=== PATIENT | male | born 1955 | race Caucasian/White ===

== ENCOUNTER 2018-01-10 12:36 | Emergency (ER) | payer OTHER ==
[2018-01-10] MEDS ORDERED: NA CHLORIDE 0.9% 500 ML ONE (13:38)
[2018-01-10] MEDS ORDERED: HYDRALAZINE HCL 20 MG/ML VIAL ONE (13:38)
[2018-01-10 13:47] LABS: Absolute Lymphocytes (CBC) 3.5 K/uL (0.7-4.9); Absolute Monocytes 0.7 K/uL (0.1-1.3); Absolute Neutrophil 5.4 K/uL (1.8-8.0); Basophils % 0.6 % (0-1.3); Eosinophils % 2.8 % (0-4.4); Hematocrit 45.1 % (39.6-49.0); Lymphocytes % 35.2 % (15.3-44.8); MPV 11.1 fL (7.6-11.3); Monocytes % 7.2 % (3.3-12.3)
[2018-01-10 13:55] LABS: Protime INR 0.93
[2018-01-10 13:59] LABS: ALT/SGPT 38 U/L (12-78); AST/SGOT 21 U/L (15-37); Albumin 3.7 g/dL (3.4-5.0); Alkaline Phosphatase 60 U/L (45-117); BUN Blood Urea Nitrogen 7 mg/dL (7-18); Bicarbonate 28 mmol/L (21-32); Bilirubin Direct 0.1 mg/dL (0-0.2); Bilirubin Total 0.4 mg/dL (0.2-1.0); Glucose Level 161 mg/dL (74-106); Magnesium 2.1 mg/dL (1.8-2.4); NT PRO-BNP 57 pg/mL (<125); Protein, Total 8.7 g/dL (6.4-8.2); Sodium Level 137 mmol/L (136-145); Troponin (Emerg Dept Use Only) < 0.02 ng/mL (0.0-0.045)
--- NOTE | 2018-01-10 14:16 | RAD REPORT ---
EXAM DESCRIPTION: RAD - Chest Single View - 01/10/2018 1:53 pm CLINICAL HISTORY: Hypertension, smoking history COMPARISON: None. TECHNIQUE: AP portable chest image was obtained 1342 hours . FINDINGS: No mass, consolidation or significant failure finding seen. Central vasculature and lung m arkings are mildly prominent with the baseline for the patient unknown. Trachea is in the midline. He art size is normal. No measurable pleural effusion and no pneumothorax. No acute bony abnormality see n. No acute aortic findings suspected. IMPRESSION: No peripheral mass or consolidation. Central vasculature and lung markings are mildly prominent. Heart size is normal. Minimal edema or volume overload pattern is possible. Infectious infiltrate is doubtful given the pro vided history.
--- NOTE | 2018-01-10 14:23 | ER ---
Nurse's Notes [facility] Name: Pierre Garcia Age: 62 yrs Sex: Male : 1955 Arrival Date: 01/10/2018 Time: 12:41 Bed 16 Private MD: Diagnosis: Essential (primary) hypertension;Patient's other noncompliance with medication regimen Presentation: 01/10 12:51 Presenting complaint: Patient states: "I've been having double vision for about 2 days aa5 now and they took my blood pressure at work and it was around 180/100". Pt denies any pain. Transition of care: patient was not received from another setting of care. Onset of symptoms was December 2017. Risk Assessment: Do you want to hurt yourself or someone else? Patient reports no desire to harm self or others. Initial Sepsis Screen: Does the patient meet any 2 criteria? No. Patient's initial sepsis screen is negative. Does the patient have a suspected source of infection? No. Patient's initial sepsis screen is negative. Care prior to arrival: None. 12:51 Method Of Arrival: Ambulatory aa5 12:51 Acuity: KAYLA 2 aa5 Triage Assessment: 12:55 General: Appears in no apparent distress. comfortable, Behavior is calm, cooperative, bp appropriate for age. Pain: Denies pain. Historical: - Allergies: 12:54 No Known Allergies; aa5 - Home Meds: 12:54 aspirin 81 mg Oral chew 1 tab once daily [Active]; multivitamin [Active]; aa5 - PMHx: 12:54 Borderline diabetes; aa5 - PSHx: 12:54 back surgery; aa5 - Immunization history:: Adult Immunizations unknown. - Social history:: Smoking status: Patient uses tobacco products, smokes one pack cigarettes per day. - Ebola Screening: : No symptoms or risks identified at this time. - Family history:: not pertinent. - Hospitalizations: : No recent hospitalization is reported. Screenin:57 Abuse screen: Denies threats or abuse. Denies injuries from another. Nutritional bp screening: No deficits noted. Tuberculosis screening: No symptoms or risk factors identified. Fall Risk None identified. Assessment: 12:56 General: Appears in no apparent distress. comfortable. Pain: Denies pain. Neuro: Level bp of Consciousness is awake, alert, obeys commands, Oriented to person, place, time, situation, Appropriate for age. Cardiovascular: No deficits noted. Respiratory: Airway is patent Respiratory effort is even, unlabored, Respiratory pattern is regular, symmetrical. GI: No signs and/or symptoms were reported involving the gastrointestinal system. : No signs and/or symptoms were reported regarding the genitourinary system. EENT: Reports blurred vision. Derm: No deficits noted. Musculoskeletal: Circulation, motion, and sensation intact. Range of motion: intact in all extremities. 15:01 Reassessment: PT D/C HOME AMBULATORY, S/S RELIEVED, DX WITH ESSENTIAL HTN. bp Vital Signs: 12:54 BP 204 / 106; Pulse 95; Resp 18 S; Temp 98.4(O); Pulse Ox 96% on R/A; Weight 92.99 kg aa5 (R); Height 5 ft. 10 in. (177.80 cm) (R); Pain 0/10; 14:00 BP 165 / 105; Pulse 89; Resp 21; Pulse Ox 97% ; bp 15:01 BP 169 / 96; Pulse 86; Resp 15; Pulse Ox 97% ; bp 12:54 Body Mass Index 29.41 (92.99 kg, 177.80 cm) aa5 ED Course: 12:41 Patient arrived in ED. mr 12:52 Triage completed. aa5 12:52 Arm band placed on. aa5 12:55 Tim Rees, RN is Primary Nurse. bp 12:57 Jayashree Hernandez FNP is PHCP. kav 12:57 Marcel Stauffer MD is Attending Physician. kav 12:57 Patient has correct armband on for positive identification. Bed in low position. Call bp light in reach. Side rails up X2. 13:16 Inserted saline lock: 20 gauge in left antecubital area, using aseptic technique. Blood aj collected. 13:40 EKG done, by implementation technician. reviewed by Jayashree SIMON. vh 13:53 XRAY Chest (1 view) In Process Unspecified. EDMS 13:53 X-ray completed. Portable x-ray completed in exam room. Patient tolerated procedure ls3 well. 14:19 Tim Bower MD is Referral Physician. kav 15:02 No provider procedures requiring assistance completed. IV discontinued, intact, bp bleeding controlled, No redness/swelling at site. Pressure dressing applied. Administered Medications: 13:20 Drug: NS 0.9% 500 ml Route: IV; Rate: 125 ml/hr; Site: left antecubital; bp 15:07 Follow up: IV Status: Completed infusion; IV Intake: 250ml bp 13:20 Drug: hydrALAZINE 10 mg Route: IV; Rate: bolus; Site: left antecubital; bp 15:07 Follow up: Response: No adverse reaction bp 15:07 Follow up: IV Status: Completed infusion bp Intake: 15:07 IV: 250ml; Total: 250ml. bp Outcome: 14:22 Discharge ordered by MD. valencia 15:02 Discharged to home ambulatory. bp 15:02 Condition: stable 15:02 Discharge instructions given to patient, Instructed on discharge instructions, follow up and referral plans. medication usage, Demonstrated understanding of instructions, follow-up care, medications, Prescriptions given X 1. 15:08 Patient left the ED. bp Signatures: Dispatcher [employer] EDMS Rosalia Marcum RN RN aj Vern, Katherine, AIRCRAFT PNEUDRAULICS REPAIRER AIRCRAFT PNEUDRAULICS REPAIRER Mai Kruse Audri, RN RN Stephanie Muniz Brian, RN RN bp Siler, Lynzie ls3
--- NOTE | 2018-01-10 14:23 | EDPHYS ---
Physician Documentation [facility] Name: Pierre Garcia Age: 62 yrs Sex: Male : 1955 Arrival Date: 01/10/2018 Time: 12:41 Bed 16 Private MD: ED Physician Marcel Stauffer HPI: 01/10 13:09 This 62 yrs old Male presents to ER via Ambulatory with complaints of Blurred kav Vision, High Blood Pressure. 13:09 The patient has elevated blood pressure and discovered this work. kav 13:10 Onset: The symptoms/episode began/occurred acutely, 2 day(s) ago, and became persistent kav this morning. Modifying factors: The symptoms are aggravated by non-compliance with medication regimen and reported stress at home and at work, The symptoms are alleviated by nothing. Associated signs and symptoms: Pertinent positives: visual changes, Pertinent negatives: chest pain, dizziness, dyspnea, headache, lightheadedness, nausea, vomiting, weakness. Severity of symptoms: At its worst the blood pressure was severe, just prior to arrival, in the emergency department the blood pressure is unchanged. The patient has experienced a previous episode, approximately 2 years ago. The patient has not recently seen a physician. . Historical: - Allergies: 12:54 No Known Allergies; aa5 - Home Meds: 12:54 aspirin 81 mg Oral chew 1 tab once daily [Active]; multivitamin [Active]; aa5 - PMHx: 12:54 Borderline diabetes; aa5 - PSHx: 12:54 back surgery; aa5 - Immunization history:: Adult Immunizations unknown. - Social history:: Smoking status: Patient uses tobacco products, smokes one pack cigarettes per day. - Ebola Screening: : No symptoms or risks identified at this time. - Family history:: not pertinent. - Hospitalizations: : No recent hospitalization is reported. ROS: 13:10 Constitutional: Negative for fever, chills, and weight loss, Eyes: Negative for injury, kav pain, redness, and discharge, ENT: Negative for injury, pain, and discharge, Neck: Negative for injury, pain, and swelling, Respiratory: Negative for shortness of breath, cough, wheezing, and pleuritic chest pain, Abdomen/GI: Negative for abdominal pain, nausea, vomiting, diarrhea, and constipation, Back: Negative for injury and pain, : Negative for injury, bleeding, discharge, and swelling, MS/Extremity: Negative for injury and deformity, Skin: Negative for injury, rash, and discoloration, Psych: Negative for depression, anxiety, suicide ideation, homicidal ideation, and hallucinations, Allergy/Immunology: Negative for hives, rash, and allergies, Endocrine: Negative for neck swelling, polydipsia, polyuria, polyphagia, and marked weight changes, Hematologic/Lymphatic: Negative for swollen nodes, abnormal bleeding, and unusual bruising. 13:10 Cardiovascular: Positive for HTN, Negative for chest pain. 13:10 Neuro: Positive for visual changes, patient reports intermittent double vision. Exam: 13:10 Constitutional: This is a well developed, well nourished patient who is awake, alert, kav and in no acute distress. Head/Face: Normocephalic, atraumatic. Eyes: Pupils equal round and reactive to light, extra-ocular motions intact. Lids and lashes normal. Conjunctiva and sclera are non-icteric and not injected. Cornea within normal limits. Periorbital areas with no swelling, redness, or edema. ENT: Nares patent. No nasal discharge, no septal abnormalities noted. Tympanic membranes are normal and external auditory canals are clear. Oropharynx with no redness, swelling, or masses, exudates, or evidence of obstruction, uvula midline. Mucous membranes moist. Neck: Trachea midline, no thyromegaly or masses palpated, and no cervical lymphadenopathy. Supple, full range of motion without nuchal rigidity, or vertebral point tenderness. No Meningismus. Chest/axilla: Normal chest wall appearance and motion. Nontender with no deformity. No lesions are appreciated. Respiratory: Lungs have equal breath sounds bilaterally, clear to auscultation and percussion. No rales, rhonchi or wheezes noted. No increased work of breathing, no retractions or nasal flaring. Abdomen/GI: Soft, non-tender, with normal bowel sounds. No distension or tympany. No guarding or rebound. No evidence of tenderness throughout. Back: No spinal tenderness. No costovertebral tenderness. Full range of motion. Skin: Warm, dry with normal turgor. Normal color with no rashes, no lesions, and no evidence of cellulitis. MS/ Extremity: Pulses equal, no cyanosis. Neurovascular intact. Full, normal range of motion. Psych: Awake, alert, with orientation to person, place and time. Behavior, mood, and affect are within normal limits. Vital Signs: 12:54 BP 204 / 106; Pulse 95; Resp 18 S; Temp 98.4(O); Pulse Ox 96% on R/A; Weight 92.99 kg aa5 (R); Height 5 ft. 10 in. (177.80 cm) (R); Pain 0/10; 14:00 BP 165 / 105; Pulse 89; Resp 21; Pulse Ox 97% ; bp 15:01 BP 169 / 96; Pulse 86; Resp 15; Pulse Ox 97% ; bp 12:54 Body Mass Index 29.41 (92.99 kg, 177.80 cm) aa5 MDM: 12:57 Medical screening is not applicable. kav 13:57 Data reviewed: vital signs, nurses notes, bp trending downward 157/105. kav 14:17 Differential diagnosis: hypertensive crisis, Malignant HTN. Data reviewed: lab test kav result(s), EKG, radiologic studies, plain films. 01/10 13:00 Order name: Basic Metabolic Panel; Complete Time: 14:15 kav 01/10 13:00 Order name: CBC with Diff; Complete Time: 14:15 kav 01/10 13:00 Order name: LFT's; Complete Time: 14:15 kav 01/10 13:00 Order name: Magnesium; Complete Time: 14:15 v 01/10 13:00 Order name: NT PRO-BNP; Complete Time: 14:15 kav 01/10 13:00 Order name: PT-INR; Complete Time: 14:15 01/10 13:00 Order name: Troponin (emerg Dept Use Only); Complete Time: 14:15 v 01/10 13:00 Order name: XRAY Chest (1 view); Complete Time: 14:17 kav 01/10 13:00 Order name: EKG; Complete Time: 13:00 v 01/10 13:00 Order name: Cardiac monitoring; Complete Time: 13:05 kav 01/10 13:00 Order name: EKG - Nurse/Tech; Complete Time: 13:18 kav 01/10 13:00 Order name: IV Saline Lock; Complete Time: 13: ka 01/10 13:00 Order name: Labs collected and sent; Complete Time: 13:18 kav 01/10 13:00 Order name: O2 Per Protocol; Complete Time: 13:05 kav 01/10 13:00 Order name: O2 Sat Monitoring; Complete Time: 13:05 kav 01/10 13:01 Order name: Visual Acuity; Complete Time: 15:06 kav Administered Medications: 13:20 Drug: NS 0.9% 500 ml Route: IV; Rate: 125 ml/hr; Site: left antecubital; bp 15:07 Follow up: IV Status: Completed infusion; IV Intake: 250ml bp 13:20 Drug: hydrALAZINE 10 mg Route: IV; Rate: bolus; Site: left antecubital; bp 15:07 Follow up: Response: No adverse reaction bp 15:07 Follow up: IV Status: Completed infusion bp Disposition: 18:50 Co-signature as Attending Physician, Marcel Stauffer MD. rn Disposition: 01/10/18 14:22 Discharged to Home. Impression: Essential (primary) hypertension, Patient's other noncompliance with medication regimen. - Condition is Stable. - Discharge Instructions: Hypertension, [id number], How to Take Your Blood Pressure, [id number], DASH Eating Plan, Managing Your Hypertension. - Prescriptions for Lisinopril 10 mg Oral Tablet - take 1 tablet by ORAL route once daily; 20 tablet. - Medication Reconciliation Form, Thank You Letter, Work release form form. - Follow up: Tim Bower MD; When: 2 - 3 days; Reason: Recheck today's complaints, Continuance of care, Re-evaluation by your physician. - Problem is new. - Symptoms have improved. - Notes: make an appointment with pcp and follow up in 7-10 days for post-ED evaluation and treatment of dx: essential hypertension take medication as directed Signatures: Dispatcher [employer] EDMS Jayasrhee Hernandez, MARBLE RUBBER MARBLE RUBBER Marcel Fernandez MD MD rn Calderon, Audri, RN RN aa5 Tim Rees RN RN bp Corrections: (The following items were deleted from the chart) 15:08 14:22 01/10/2018 14:22 Discharged to Home. Impression: Essential (primary) bp hypertension; Patient's other noncompliance with medication regimen. Condition is Stable. Forms are Medication Reconciliation Form, Thank You Letter, Antibiotic Education, Prescription Opioid Use. Follow up: Tim Bower; When: 2 - 3 days; Reason: Recheck today's complaints, Continuance of care, Re-evaluation by your physician. Problem is new. Symptoms have improved. [email or web address]
--- NOTE | 2018-01-10 22:08 | EKG ---
Test Date: 2018-01-10 Test Time: 13:20:20 Band Aid Machine Operator: MICHAEL MEASUREMENT RESULTS: Intervals: Rate: 84 CA: 150 QRSD: 104 QT: 386 QTc: 456 Dumont: P: 52 CA: 150 QRS: 71 T: 29 INTERPRETIVE STATEMENTS: Sinus rhythm with occasional premature ventricular complexes Otherwise normal ECG No previous ECG available for comparison Electronically Signed On 01-10-18 22:08:07 CDT by Pérez Pederson
== END 2018-01-10 15:08 | disposition home or self-care (01) ==
LOC: ER 12:36
DX: I10 Essential (primary) hypertension (principal); Z91.14 Patient's other noncompliance with medication regimen
CPT/HCPCS: 36415; 71045; 80048; 80076; 83735; 83880; 84484; 85025; 85610; 93005; 96365; 96366; 99284; J0360